=== PATIENT | female | born 2000 | race Caucasian/White ===

== ENCOUNTER 2019-02-12 01:12 | Emergency (ER) | payer OTHER ==
[2019-02-12 03:06] LABS: ABSOLUTE LYMPHOCYTES (AUTO) 1.3 10^3/uL (0.5-4.7); ABSOLUTE MONOCYTES (AUTO) 0.4 10^3/uL (0.1-1.4); ABSOLUTE NEUT (AUTO) 13.4 10^3/uL (1.7-8.2); BASOPHILS % (AUTO) 0.3 % (0-2); EOSINOPHILS % (AUTO) 0.1 % (0-6); HEMATOCRIT 37.7 % (36.0-47.0); HEMOGLOBIN 12.6 g/dL (12.0-15.5); LYMPHOCYTES % (AUTO) 8.5 % (13-45); MEAN CORPUSCULAR HEMOGLOBIN 28.4 pg (27.0-33.4); MEAN CORPUSCULAR HGB CONC 33.4 g/dL (32.0-36.0); MEAN CORPUSCULAR VOLUME 85 fl (80-97); MONOCYTES % (AUTO) 2.4 % (3-13); PLATELET COUNT 339 10^3/uL (150-450); RED BLOOD COUNT 4.42 10^6/uL (3.72-5.28); RED CELL DISTRIBUTION WIDTH 14.2 % (11.5-14.0); SEGMENTED NEUTROPHILS % (AUTO) 88.7 % (42-78); TOTAL CELLS COUNTED % (AUTO) 100 %; WHITE BLOOD COUNT 15.1 10^3/uL (4.0-10.5)
[2019-02-12 03:20] LABS: ALANINE AMINOTRANSFERASE 47 U/L (9-52); ALBUMIN 4.3 g/dL (3.5-5.0); ALKALINE PHOSPHATASE 64 U/L (38-126); ANION GAP 9 (5-19); ASPARTATE AMINO TRANSFERASE 25 U/L (14-36); BILIRUBIN,DIRECT 0.1 mg/dL (0.0-0.4); BILIRUBIN,TOTAL 0.3 mg/dL (0.2-1.3); BLOOD UREA NITROGEN 12 mg/dL (7-20); CALCIUM 9.6 mg/dL (8.4-10.2); CARBON DIOXIDE 24 mmol/L (22-30); CHLORIDE 105 mmol/L (98-107); GLUCOSE 118 mg/dL (75-110); LIPASE 56.1 U/L (23-300); POTASSIUM 4.3 mmol/L (3.6-5.0); SODIUM 137.8 mmol/L (137-145); TOTAL PROTEIN 7.4 g/dL (6.3-8.2)
[2019-02-12] MEDS ORDERED: MORPHINE SULFATE 10 MG/ML INJ IV ONE ×2 (04:59→06:42)
--- NOTE | 2019-02-12 05:01 | ER Document Report ---
Doctor's Note Notes: 02/12/19 05:00 Performed triage evaluation patient. Patient is a pleasant 19-year-old female who is G2, P1. She is currently with a known ectopic . She lives in [facility]. She was seen there early Saturday morning around 2 AM and was diagnosed with an ectopic and given methotrexate. At that time she thinks her hCG level was over 5000. She says at her last 3 visits there is start to go up. Tonight around 10 PM she started having significant pain in the left pelvis and therefore she came to the ER. No vaginal bleeding. No fevers. No syncope. No other complaints at this time. On exam patient does have tenderness palpation of her left lower abdomen. Vital signs are currently stable. She is in no distress. Have ordered some pain medicine as well as an ultrasound. hCG level is currently 3600. Dictation of this chart was performed using voice recognition software; t herefore, there may be some unintended grammatical errors. 02/12/19 05:01
[2019-02-12] MEDS ORDERED: ONDANSETRON HCL INJ/PF 4 MG/2 ML SDV IV ONE (05:28)
--- NOTE | 2019-02-12 06:24 | ER Document Report ---
ED GI/ - General Chief Complaint: OB Problem (<20wks) Stated Complaint: POSSIBLE ECTOPIC Time Seen by Provider: 02/12/19 06:15 Mode of Arrival: Ambulatory Information source: Patient, Relative Notes: This 19-year-old female patient comes emergency room complaining of left lower quadrant pain with some nausea and vomiting. She was diagnosed with an ectopic early Saturday morning about 2 AM at [facility] in [place]. She was given methotrexate. hCG level was 5606 at that time. She returned to the emergency room on Saturday for cramps and passing clots. At that time the hormone level had gone up from the initial value but was still less than 6000. She reports about 10 PM last night she developed bad pain and cramps with the nausea and very large volume 1 time, and has had dark bloody discharge since yesterday. The patient is G2, P1 TRAVEL OUTSIDE OF THE [place] IN LAST 30 DAYS: No - Related Data Allergies/Adverse Reactions: aspirin Allergy (Verified 02/12/19 07:12) Past Medical History - General Information source: Patient, Relative - Social History Smoking Status: Never Smoker Cigarette use (# per day): No Chew tobacco use (# tins/day): No Smoking Education Provided: No Frequency of alcohol use: None Drug Abuse: None Occupation: Employed Lives with: Spouse/Significant other Family History: Reviewed & Not Pertinent - Medical History Medical History: Negative Past Surgical History: Reports: Other - Rhinoseptoplasty Review of Systems - Review of Systems Constitutional: No symptoms reported EENT: No symptoms reported Cardiovascular: No symptoms reported Respiratory: No symptoms reported Gastrointestinal: No symptoms reported Genitourinary: No symptoms reported Female Genitourinary: See HPI Musculoskeletal: No symptoms reported Skin: No symptoms reported Hematologic/Lymphatic: No symptoms reported Neurological/Psychological: No symptoms reported Physical Exam - Vital signs Vitals: Temp Pulse Resp BP Pulse Ox 97.3 F 88 16 115/72 100 02/12/19 01:25 02/12/19 01:25 02/12/19 01:25 02/12/19 01:25 02/12/19 01:25 - Notes Notes: PHYSICAL EXAMINATION: GENERAL: Well-appearing, well-nourished and in no acute distress. HEAD: Atraumatic, normocephalic. EYES: Pupils equal round and reactive to light, extraocular movements intact, sclera anicteric, conjunctiva are normal. ENT: nares patent, oropharynx clear without exudates. Moist mucous membranes. NECK: Normal range of motion, supple without lymphadenopathy LUNGS: Breath sounds clear to auscultation bilaterally and equal. No wheezes rales or rhonchi. HEART: Regular rate and rhythm without murmurs ABDOMEN: Soft, decreased bowel sounds. No rebound. Point tender in the left lower quadrant pelvic region. EXTREMITIES: Normal range of motion, no pitting or edema. No cyanosis. NEUROLOGICAL: Cranial nerves grossly intact. Normal speech, normal gait. Normal sensory, motor, and reflex exams. PSYCH: Normal mood, normal affect. SKIN: Warm, Dry, normal turgor, no rashes or lesions noted. Course - Vital Signs Vital signs: Temp Pulse Resp BP Pulse Ox 97.3 F 88 17 112/70 100 02/12/19 01:25 02/12/19 01:25 02/12/19 07:01 02/12/19 07:01 02/12/19 07:01 - Laboratory Result Diagrams: 02/12/19 02:55 02/12/19 02:55 Laboratory results interpreted by me: 02/12/19 02/12/19 02/12/19 02:55 02:55 05:54 WBC 15.1 H RDW 14.2 H Seg Neutrophils % 88.7 H Lymphocytes % 8.5 L Monocytes % 2.4 L Absolute Neutrophils 13.4 H Glucose 118 H Beta HCG, Quant 3604.30 H Crossmatch See Detail - Diagnostic Test Radiology reviewed: Reports reviewed - Ultrasound shows possible ruptured ectopic gestation. Moderate hypoechoic free fluid in the pelvis with indete rminate 1.4 cm cystic component/gestational sac of the left adnexa. Discharge - Discharge Clinical Impression: Ruptured left tubal ectopic causing hemoperitoneum Condition: Stable Disposition: ADMITTED INPATIENT Admitting Provider: [facility] Unit Admitted: OR
[2019-02-12] MEDS ORDERED: NORMAL SALINE 1000 ML 1,000 ML IV ONE (06:42)
[2019-02-12] MEDS: ONDANSETRON HCL INJ/PF 4 MG/2 ML SDV IV ONE ×2 (07:02→11:58)
--- NOTE | 2019-02-12 07:23 | RADIOLOGY REPORT (SQ) ---
EXAM DESCRIPTION: US TRANSVAGINAL COMPLETED DATE/TME: 02/12/2019 04:55 CLINICAL HISTORY: 19 years Female, ectopic COMPARISON: None TECHNIQUE: Transvaginal. LIMITATIONS: None. FINDINGS: No intrauterine gestation confirmed. Indeterminate 1.4 cm cystic component of the left adnexa. Cannot exclude a left-sided ectopic gestation. Differential diagnosis includes early viable occult gestation, ectopic gestation, or ongoing gestational loss. Moderate hypoechoic free fluid. 1.9 cm thickened heterogeneous endometrial stripe. 3.4-cm right ovary, 3.2-cm left ovary, and 3.6 cm cervical length appear otherwise unremarkable. IMPRESSION: Possible ruptured ectopic gestation. Moderate hypoechoic free pelvic fluid may indicate hemorrhage or inflammatory fluid. Indeterminate 1.4 cm cystic component /gestational sac of the left adnexa. Differential diagnosis includes ectopic gestation with possible rupture, early viable occult gestation, or ongoing gestational loss. Immediate OB Surgical referral advised.
[2019-02-12] MEDS ORDERED: NORMAL SALINE 250 ML IV PRN (07:34)
[2019-02-12] MEDS ORDERED: MORPHINE SULFATE 10 MG/ML INJ ONE (09:39)
[2019-02-12] MEDS ORDERED: MIDAZOLAM 2 MG/2 ML INJ ONE (09:39)
[2019-02-12] MEDS ORDERED: FENTANYL CITRATE INJ/PF 100 MCG/2 ML AMPUL ONE (09:39)
[2019-02-12] MEDS ORDERED: DEXAMETHASONE SOD PHOSPHATE INJ 4 MG/1 ML VIAL ONE (09:39)
[2019-02-12] MEDS ORDERED: PROPOFOL INJ 200 MG/20 ML VIAL IV ONE (09:39)
[2019-02-12] MEDS ORDERED: ONDANSETRON HCL INJ/PF 4 MG/2 ML SDV ONE ×2 (09:39→11:51)
[2019-02-12] MEDS ORDERED: BUPIVACAINE HCL 0.25 % INJ/PF (2.5 MG/1 ML) 30 ML VIAL ONE (09:44)
[2019-02-12] MEDS ORDERED: CEFAZOLIN INJ 1 GM VIAL ONE (10:23)
[2019-02-12] MEDS ORDERED: FENTANYL CITRATE INJ/PF 100 MCG/2 ML AMPUL IV PRN ×3 (10:27)
[2019-02-12] MEDS ORDERED: PROMETHAZINE HCL INJ 25 MG/1 ML VIAL IV PRN ×2 (10:27)
[2019-02-12] MEDS ORDERED: DIPHENHYDRAMINE HCL 50 MG/ML VIAL IV PRN (10:27)
[2019-02-12] MEDS ORDERED: MORPHINE SULFATE 10 MG/ML INJ IV PRN (10:27)
[2019-02-12] MEDS ORDERED: MEPERIDINE HCL/PF INJ 25 MG/1 ML DISP.SYRIN IV PRN (10:27)
[2019-02-12] MEDS ORDERED: KETOROLAC TROMETHAMINE INJ/PF 30 MG/1 ML SDV ONE (11:05)
--- NOTE | 2019-02-12 11:05 | OPERATIVE REPORT E ---
Operative Report NAME: MANJINDER STAFFORD : 2000 AGE: 19Y DATE OF SURGERY: 02/12/2019 ROOM: ED09 PREOPERATIVE DIAGNOSIS: LEFT ECTOPIC . POSTOPERATIVE DIAGNOSIS: LEFT ECTOPIC . OPERATION: Diagnostic laparoscopy with a left salpingectomy. SURGEON: Rupa GODOY M.D. ANESTHESIA: General. ESTIMATED BLOOD LOSS: Less than 20 mL. PROCEDURE: The patient was placed in a dorsal lithotomy position, prepped and draped in normal sterile fashion. A speculum was placed and the cervix was visualized and grasped with a single-tooth tenaculum. A Hulka tenaculum was placed. Single-tooth tenaculum was removed. Bladder was drained with a catheter. Attention was turned to the abdomen, where a subumbilical midline incision was made. Trocar was introduced for insufflation of the abdomen and insertion of laparoscope. There was copious amounts of blood in the cul-de-sac and lower abdomen. There was an edematous left salpinx which was consistent with left ectopic . The blood was removed and it was approximately 300 mL. A second puncture was made above the symphysis and a 5 trocar was introduced and the third lateral to the midline another 5 was introduced. Using a Harmonic scalpel, the left tube was removed along the mesosalpinx. The ectopic then removed. Using a Fleetman sac, the area was then noted to be hemostatic. That was irrigated with normal saline. Again the area appeared to be hemostatic. The patient tolerated well. The trocars were removed, the abdomen deflated. The incision at the umbilicus closed with 0-Vicryl for the fascia, 4-0 subcutaneously, and the other punctures were closed using *------*. The tenaculum was removed and the patient was taken to the recovery room in good condition. DICTATING PHYSICIAN: Rupa GODOY M.D. [id number] PHY#: [id number] ID: [id number] JOB#: [id number] ACCT: [id number] cc:Rupa GODOY M.D. >
[2019-02-12] MEDS ORDERED: OXYCODONE-ACETAMINOPHEN 5-325 MG TABLET ONE (11:38)
[2019-02-12] MEDS ORDERED: SUCCINYLCHOLINE CHLORIDE INJ 200 MG/10 ML VIAL ONE (12:05)
[2019-02-12 12:58] VITALS: BP 106/58
== END 2019-02-12 12:40 | disposition other institution (70) ==
LOC: ER 01:12 → UNDOADMIN 08:12 → EH 08:12 → ER 12:40 → UNDODISIN 12:40
PROC: 0UT64ZZ Resection of Left Fallopian Tube, Percutaneous Endoscopic Approach (ICD-10-PCS; 2019-02-12)
PROC: 10T24ZZ Resection of Products of Conception, Ectopic, Percutaneous Endoscopic Approach (ICD-10-PCS; principal; 2019-02-12 08:15)
DX: O00.112 Left tubal pregnancy with intrauterine pregnancy (principal); K66.1 Hemoperitoneum; O21.9 Vomiting of pregnancy, unspecified; O26.899 Other specified pregnancy related conditions, unspecified trimester; R10.32 Left lower quadrant pain; Z3A.00 Weeks of gestation of pregnancy not specified
CPT/HCPCS: 96376; 99285; 96361; 96374; 96375; 86900; 86901; 36415; 86870; 86850; 86922; 84702; 83690; 85025; 80053; 86920; 88305 ×2; 76817; 93976; 59151; J2250; J0690; J1100; J3010; J1885; J2270; J0330; J2405; J7030; J2704; 840